=== PATIENT | male | born 1990 | race African-American/Black ===

== ENCOUNTER 2022-12-28 12:15 | Emergency (ER) | payer OTHER ==
[~2022-12-28] VITALS: Ht 180.3 cm; Wt 99.8 kg
--- NOTE | 2022-12-28 12:24 | NUR ---
BLOOD NOTED IN HIS URINE SINCE 2 HRS AGO. VITALS ARE WITHIN NORMAL LIMITS. AWAITING MD QUEZADA.
--- NOTE | 2022-12-28 12:50 | NUR ---
URINE COLLECTED AND SENT
[2022-12-28 13:20] LABS: BILIRUBIN,URINE 1+ (NEGATIVE); COLOR,URINE YELLOW (YELLOW); LEUKOCYTE ESTERASE ,URINE NEGATIVE (NEGATIVE); NITRITE, URINE NEGATIVE (NEGATIVE); PROTEIN,URINE 1+ mg/dl (NEGATIVE); UGLUCOSE NEGATIVE (NEGATIVE)
[2022-12-28 13:27] LABS: BACTERIA,URINE Rare /HPF (None Seen); RBC,URINE TOO NUMEROUS TO COUN /HPF (0-2); SQUAMOUS EPITHELIAL CELL,UR Few /HPF (None Seen); WBC,URINE 0-2 /HPF (0-3)
--- NOTE | 2022-12-28 13:40 | NUR ---
Patient discharged to home in stable condition. Written and verbal after care instructions given. Patient verbalizes understanding of instruction.
[2022-12-28 13:41] VITALS: BP 127/88; TEMP 98.8; O2SAT 99
== END 2022-12-28 13:41 | disposition home or self-care (01) ==
LOC: ER 12:18
DX: S39.94XA Unspecified injury of external genitals, initial encounter (principal); R31.9 Hematuria, unspecified; Z91.013 Allergy to seafood; X58.XXXA Exposure to other specified factors, initial encounter; Y93.89 Activity, other specified; Y92.89 Other specified places as the place of occurrence of the external cause; Y99.8 Other external cause status
CPT/HCPCS: 81001